=== PATIENT | male | born 1940 | race Caucasian/White ===

== ENCOUNTER 2021-12-11 23:18 | Emergency (ER) | payer MEDICARE, OTHER ==
[~2021-12-11] VITALS: Ht 182.9 cm; Wt 76.2 kg
[~2021-12-11 23:18] MED LIST: AMLODIPINE BESYL5 MG PO; ATENOLOL25 MG PO; PLAVIX75 MG PO; PRAVASTATIN SOD40 MG PO
[2021-12-12 00:17] VITALS: BP 122/63
== END 2021-12-12 00:05 | disposition home or self-care (01) ==
LOC: ER 23:24
DX: I83.892 Varicose veins of left lower extremity with other complications (principal); I10 Essential (primary) hypertension; E78.5 Hyperlipidemia, unspecified; E78.00 Pure hypercholesterolemia, unspecified
CPT/HCPCS: 99283